=== PATIENT | female | born 1995 | race African-American/Black ===

== ENCOUNTER 2020-07-06 14:31 | Emergency (ER) | payer OTHER ==
[~2020-07-06] VITALS: Ht 165.1 cm; Wt 60.8 kg
[~2020-07-06 14:31] MED LIST: BACTRIM DS TAB1 EAC1 ORAL; CIPROFLOXACIN500 M2 ORAL; IBUPROFEN600 MG PO; METROGEL-VAGINA70 G1 VAGIN; MOTRIN400 MG PO; NKM; PENICILLIN V P500 MG PO; PHENAZOPYRIDIN100 MG ORAL; PHENAZOPYRIDIN200 MG ORAL
--- NOTE | 2020-07-06 14:42 | NUR ---
ED Nurse Note: Pt ambulated to ed c/o left flank pain radiating to lower back x 3-4 days. pt denies N/V/D, burning during urination, foul odor, discharge.
[2020-07-06 14:43] VITALS: BP 122/69
[2020-07-06 15:04] LABS: APPEARANCE,URINE SLIGHTLY CLOUDY; BILIRUBIN, URINE NEGATIVE (NEGATIVE); COLOR,URINE PALE YELLOW; GLUCOSE, URINE (UA) NEGATIVE (NEGATIVE); KETONES,URINE NEGATIVE (NEGATIVE); LEUKOCYTE ESTERASE ,URINE 1+ (NEGATIVE); NITRITE,URINE NEGATIVE (NEGATIVE); PH,URINE 6.5 (4.5-8.0); PROTEIN,URINE NEGATIVE (NEGATIVE); UROBILINOGEN,URINE NORMAL MG/DL (0.0-1.0)
--- NOTE | 2020-07-06 16:13 | Emergency Room Report ---
History of Present Illness General Chief Complaint: Female Urogenital Problems Source: Patient Present Illness HPI 24 presents to the ED c/o 11/10 in severity left flank pain intermittent and severe in nature. She denies dysuria, hematuria or urinary frequency. She denies abdominal pain or tenderness. She denies nausea or vomiting. Denies fevers or chills. Denies suspicion of . She denies suspicion of STI. Denies vaginal discharge or swollen tender lymph nodes. Pt denies hx of renal calculi. Pt. denies trauma or fall. denies cough. Allergies: Coded Allergies: Shrimp (Verified Allergy, Intermediate, THROAT SWELLING, 09/06/12) COVID-19 Screening Contact w/high risk pt: No Experienced COVID-19 symptoms?: No COVID-19 Testing performed SAP PORTAL DEVELOPER: No Patient History Past Medical History: see triage record Past Surgical History: none Pertinent Family History: none Last Menstrual Period: 06/21 Now: No Reviewed Nursing Documentation: PMH: Agreed; PSxH: Agreed Nursing Documentation-PMH Past Medical History: No Stated History Review of Systems All Other Systems: negative except mentioned in HPI Physical Exam Vital Signs Date Time Temp Pulse Resp B/P (MAP) Pulse Ox O2 Delivery O2 Flow Rate FiO2 07/06/20 14:35 98.2 89 18 122/69 (86) 98 Room Air Sp02 EP Interpretation: reviewed, normal General Appearance: no apparent distress, alert, GCS 15, non-toxic Head: normocephalic, atraumatic Eyes: bilateral eye normal inspection, bilateral eye PERRL ENT: hearing grossly normal, normal voice Neck: full range of motion Respiratory: lungs clear, normal breath sounds, speaking full sentences Cardiovascular #1: regular rate, rhythm Gastrointestinal: normal bowel sounds, non tender, soft, non-distended, no guarding Rectal: deferred Genitourinary: normal inspection, no CVA tenderness Musculoskeletal: back normal, normal range of motion, gait/station normal, tender - very mild ttp to deep palpation of the left flank area. Neurologic: alert, motor strength/tone normal, oriented x3, sensory intact, responsive, speech normal Psychiatric: judgement/insight normal Lymphatic: no adenopathy Medical Decision Making PA Attestation Dr. Gleason Is my supervising Physician whom patient management has been discussed with. Diagnostic Impression: Primary Impression: Left flank pain ER Course 24 presents to the ED c/o 11/10 in severity left flank pain intermittent and severe in nature. She denies dysuria, hematuria or urinary frequency. She denies abdominal pain or tenderness. She denies nausea or vomiting. Denies fevers or chills. Denies suspicion of . She denies suspicion of STI. Denies vaginal discharge or swollen tender lymph nodes. Pt denies hx of renal calculi. Pt. denies trauma or fall. denies cough. Ddx considered but are not limited to Diverticulitis, acute appy, diarrhea,UC, PUD, GE, pancreatitis, gallstone, kidney stone, pyelonephritis, UTI, obstruction. Vital signs: are WNL, pt. is afebrile H&PE are most consistent with musculoskeletal pain, will r/o renal calculi or pyelonephritis. The patient is nontoxic in parents in no acute distress and physical exam does not indicate acute abdomen on exam. ORDERS: -Hcg: Negative - UA: Most indicative of contamination: presence of equal amounts of bacteria and squamous cells, no elevation in inflammatory markers, nitrite negative. - CT abdomen and pelvis no contrast: -- Not ordered, no RBC's in urine and pt. NAD, ED INTERVENTIONS: -I do not identify an emergent condition at this time. With current presentation, pt. is stable for close outpatient follow up and conservative treatment. D/w pt. to return promptly to ED with worsening or new symptoms.- Pt. verbalizes' understanding and agreement with proposed treatment plan.proposed treatment plan. DISCHARGE: At this time pt. is stable for d/c to home. Will provide printed patient care instructions, and any necessary prescriptions. Care plan and follow up instructions have been discussed with the patient prior to discharge. Labs Test 07/06/20 14:40 Urine Color Pale yellow Urine Appearance Slightly cloudy Urine pH 6.5 (4.5-8.0) Urine Specific Hedrick 1.005 (1.005-1.035) Urine Protein Negative (NEGATIVE) Urine Glucose (UA) Negative (NEGATIVE) Urine Ketones Negative (NEGATIVE) Urine Blood 2+ (NEGATIVE) Urine Nitrite Negative (NEGATIVE) Urine Bilirubin Negative (NEGATIVE) Urine Urobilinogen Normal MG/DL (0.0-1.0) Urine Leukocyte Esterase 1+ (NEGATIVE) Urine RBC 0-2 /HPF (0 - 2) Urine WBC 0-2 /HPF (0 - 2) Urine Squamous Epithelial Cells Moderate /LPF (NONE/OCC) Urine Bacteria Few /HPF (NONE) Urine HCG, Qualitative Negative (NEGATIVE) Last Vital Signs Date Time Temp Pulse Resp B/P (MAP) Pulse Ox O2 Delivery O2 Flow Rate FiO2 07/06/20 14:43 98.2 74 18 122/69 98 Room Air Status: improved Disposition: HOME, SELF-CARE Condition: Stable Scripts Lidocaine Patch* (Lidoderm Patch*) 1 Each Adh..patch 1 PATCH TOPIC DAILY, #30 PATCH 0 Refills Patch(es) may remain in place for up to 12 hours in any 24-hour period. Prov: Annette Cortez 07/06/20 Ibuprofen* (MOTRIN*) 600 Mg Tablet 600 MG ORAL THREE TIMES A DAY, #20 TAB Prov: Annette Cortez 07/06/20 Referrals: [facility] (PCP) Patient Instructions: Flank Pain, [id number] Additional Instructions: Take medications as directed. Follow up with a Primary Care Provider in 3-5 days, even if your symptoms have resolved. Return sooner to ED if new symptoms occur, or current symptoms become worse. - Please note that this Emergency Department Report was dictated using [employer]certified prosthetist/orthotist technology software, occasionally this can lead to erroneous entry secondary to interpretation by the dictation equipment. Annette Cortez Jul 06, 2020 16:13
[2020-07-06] MEDS ORDERED: IBUPROFEN600 M1 ORAL (16:25)
[2020-07-06] MEDS ORDERED: LIDODERM700 M1 TOPIC (16:25)
[2020-07-06 16:26] VITALS: BP 132/76
--- NOTE | 2020-07-06 16:26 | NUR ---
ER DISCHARGE NOTE: Patient is cleared to be discharged per ERMD, pt is aox4, on room air, with stable vital signs. pt was given dc and prescription instructions, pt was able to verbalize understanding, pt id band. pt is able to ambulate with steady gait. pt took all belongings.
== END 2020-07-06 16:30 | disposition home or self-care (01) ==
LOC: EMR 14:55
DX: R10.9 Unspecified abdominal pain (principal); Z91.013 Allergy to seafood
CPT/HCPCS: 81003; 81025; 99282